=== PATIENT | male | born 2000 | race Caucasian/White ===

== ENCOUNTER 2022-08-08 21:38 | Emergency (ER) | payer SELFPAY ==
[2022-08-08] MEDS ORDERED: Metoclopramide HCl 10 MG/2 ML VIAL ONE (23:22)
[2022-08-08] MEDS ORDERED: diphenhydrAMINE 50 MG/ML VIAL ONE (23:23)
== END 2022-08-09 01:28 | disposition home or self-care (01) ==
LOC: CSHERS 21:38
DX: R51.9 Headache, unspecified (principal); R20.2 Paresthesia of skin; Z87.891 Personal history of nicotine dependence
CPT/HCPCS: 96374; 96375; J1200; J2765